=== PATIENT | female | born 2000 | race Caucasian/White ===

== ENCOUNTER 2024-02-09 09:07 | Emergency (ER) | payer SELFPAY ==
[2024-02-09 09:10] VITALS: BP 122/83
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
[2024-02-09] MEDS: ZOFRAN ODT (ORALLY DISINTEGRATING) 4 MG PO (09:42)
[2024-02-09] MEDS: TYLENOL 650 MG PO (09:43)
[2024-02-09] MEDS: FLEXERIL 5 MG PO (09:43)
[2024-02-09 09:45] VITALS: BMI 34.3
[2024-02-09 10:14] LABS: HCG, Urine Qualitative Screen Negative
[2024-02-09 11:25] VITALS: BP 124/78
== END 2024-02-09 11:30 | disposition home or self-care (01) ==
LOC: EMR 09:07
PROVIDERS: Physician Assistant; EMERGENCY PHYSICIAN Emergency Medicine; FAMILY PHYSICIAN Physician Assistant Medical
DX: S06.0XAA Concussion with loss of consciousness status unknown, initial encounter (principal); S16.1XXA Strain of muscle, fascia and tendon at neck level, initial encounter; V43.52XA Car driver injured in collision with other type car in traffic accident, initial encounter; Y92.410 Unspecified street and highway as the place of occurrence of the external cause; J45.909 Unspecified asthma, uncomplicated; Z86.718 Personal history of other venous thrombosis and embolism
CPT/HCPCS: 99284; 70450; 72125; 73030; 81025